=== PATIENT | female | born 1985 | race American Indian/Alaskan Native ===

== ENCOUNTER 2018-11-17 06:23 | Emergency (ER) | payer OTHER ==
[2018-11-17] MEDS ORDERED: ZOFRAN IV ONE ×2 (06:33→11:02)
[2018-11-17] MEDS ORDERED: MORPHINE IV ONE ×2 (06:33→10:44)
[2018-11-17] MEDS ORDERED: BOOSTRIX IM ONE (06:33)
[2018-11-17] MEDS ORDERED: BSS 1 DROPS, TETRACAINE 0.5% 1 DROPS, FUL-GLO 1 MG OD ONE (06:39)
[2018-11-17] MEDS ORDERED: NACL 0.9% 500 ML IR ONE (06:40)
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
[2018-11-17 06:52] LABS: Basophils # (Auto) 0.1 K/mm3 (0.0-0.1); Basophils % (Auto) 0.5 % (0.0-1.8); Hematocrit 38.2 % (30.3-42.9); Hemoglobin 12.6 gm/dl (10.1-14.3); Lymphocytes # (Auto) 1.2 K/mm3 (1.2-5.4); Lymphocytes % (Auto) 9.4 % (13.4-35.0); Mean Corpuscular HGB Conc 33 % (30-34); Mean Corpuscular Volume 90 fl (79-97); Monocytes # (Auto) 0.6 K/mm3 (0.0-0.8); Monocytes % (Auto) 4.6 % (0.0-7.3); Platelet Count 308 K/mm3 (140-440); Red Blood Count 4.26 M/mm3 (3.65-5.03); Red Cell Distribution Width 13.7 % (13.2-15.2)
[2018-11-17] MEDS ORDERED: XYLOCAINE 1%/ EPI 1:100,000 INFILTRATI NR (07:00)
[2018-11-17 07:14] LABS: Alanine Aminotransferase 10 units/L (7-56); Albumin 4.5 g/dL (3.9-5); BUN/Creatinine Ratio 10; Blood Urea Nitrogen 8 mg/dL (7-17); Calcium 8.7 mg/dL (8.4-10.2); Hemolysis Index 4
[2018-11-17] MEDS ORDERED: FUL-GLO OP ONE (07:41)
[2018-11-17] MEDS ORDERED: TETRACAINE 0.5% ONE (07:42)
[2018-11-17 07:58] VITALS: BP 101/64
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
[2018-11-17] MEDS ORDERED: AUGMENTIN 875 MG PO ONE (10:58)
[2018-11-17] MEDS ORDERED: K-DUR PO ONE (11:02)
== END 2018-11-17 13:53 | disposition home or self-care (01) ==
LOC: ED 06:23
DX: S02.81XA Fracture of other specified skull and facial bones, right side, initial encounter for closed fracture (principal); S20.211A Contusion of right front wall of thorax, initial encounter; H11.31 Conjunctival hemorrhage, right eye; M25.511 Pain in right shoulder; Z88.0 Allergy status to penicillin; Y04.8XXA Assault by other bodily force, initial encounter; Y93.89 Activity, other specified; Y92.098 Other place in other non-institutional residence as the place of occurrence of the external cause; Y99.8 Other external cause status
CPT/HCPCS: 12013; 36415; 70450; 70486; 71260; 73030; 74177; 80053; 84703; 85025; 86850; 86900; 86901; 90471; 90715; 96374; 96375; 96376; 99285; J2270; J2405; Q9967